=== PATIENT | male | born 1960 | race Caucasian/White ===

== ENCOUNTER 2017-04-01 17:43 | Emergency (ER) | payer OTHER ==
[2017-04-01 17:55] VITALS: BP 142/94
[2017-04-01] MEDS ORDERED: cephALEXin 250 MG CAPSULE PO STA (19:43)
[2017-04-01] MEDS ORDERED: SULFAMETH/TRIMETH DS 800/160 MG TABLET PO STA (19:43)
--- NOTE | 2017-04-01 19:46 | ED Physician Documentation ---
History of Present Illness - Stated complaint Stated Complaint: RT LEG BLISTER - Chief complaint Chief Complaint: Wound - History obtained from History obtained from: Patient, Family - History of Present Illness Timing: How many days ago (2) Pain level max: 4 Pain level now: 4 Improved by: nothing Worsened by: nothing - Additonal information Additional information: Patient is a 56-year-old gentleman who noted a blistering to the right leg a few days ago, tried to pop it last night and now has spreading redness around the wound. No fever. Denies any injury. Review of Systems Constitutional: denies: Fever GI: denies: Vomiting PD PAST MEDICAL HISTORY - Past Medical History Past Medical History: No Cardiovascular: None Respiratory: None Neuro: None Endocrine/Autoimmune: None GI: None : None HEENT: None Psych: None Musculoskeletal: None Derm: None - Past Surgical History Past Surgical History: No - Present Medications Home Medications: Ambulatory Orders Medication Instructions Recorded Confirmed Cephalexin [Keflex] 500 mg PO Q6H #28 capsule 04/01/17 Ketoconazole 15 gm TP BID 04/01/17 04/01/17 Sulfamethox/Trimeth 800/160 1 each PO BID #14 tablet 04/01/17 [Bactrim Ds 800/160] - Allergies Allergies/Adverse Reactions: Allergies Allergy/AdvReac Type Severity Reaction Status Date / Time No Known Drug Allergies Allergy Verified 04/01/17 17:55 - Social History Does the pt smoke?: No Smoking Status: Never smoker Does the pt drink ETOH?: Yes Does the pt have substance abuse?: No - Immunizations Immunizations are current?: No - POLST Patient has POLST: No PD ED PE NORMAL - Vitals Vital signs reviewed: Yes - General General: Alert and oriented X 3, No acute distress - Derm Derm: Warm and dry - Extremities Extremities: Other (R thigh - 3x3cm erythema to the distal lateral thigh, small central area of open wound, no purulence. ) - Neuro Neuro: Alert and oriented X 3 - Psych Psych: Normal mood, Normal affect Results - Vitals Vitals: Vital Signs - 24 hr 04/01/17 04/01/17 17:47 19:57 Temperature 36.5 C Heart Rate 89 82 Respiratory 16 17 Rate Blood Pressure 142/94 H O2 Saturation 99 99 Oxygen O2 Source Room air PD MEDICAL DECISION MAKING - ED course Complexity details: considered differential, d/w patient, d/w family ED course: Patient is a 56-year-old male who presents to the emergency department with what appears to be a spontaneously drained abscess with surrounding cellulitis to the right distal thigh. Will place on antibiotics for this. We will have him follow-up with his PCP for further evaluation and care. Patient and family counseled regarding signs and symptoms for which I believe and urgent re- evaluation would be necessary. Patient with good understanding of and agreement to plan and is comfortable going home at this time This document was made in part using voice recognition software. While efforts are made to proofread this document, sound alike and grammatical errors may occur. Departure - Departure Disposition: Home, Self Care Clinical Impression: Cellulitis Qualifiers: Site of cellulitis: extremity Site of cellulitis of extremity: lower extremity Laterality: right Qualified Code(s): L03.115 - Cellulitis of right lower limb Condition: Good Instructions: ED Infec Skin Cellulitis Follow-Up: Iva Jane PA [Primary Care Provider] - Within 1 week Prescriptions: Cephalexin [Keflex] 500 mg PO Q6H #28 capsule Sulfamethox/Trimeth 800/160 [Bactrim Ds 800/160] 1 each PO BID #14 tablet Comments: Return if you worsen. Take all antibiotics until gone. You can use motrin or tylenol as needed for pain. Discharge Date/Time: 04/01/17 19:58
[2017-04-01] MEDS ORDERED: cephALEXin 250 MG CAPSULE PO ONE (19:57)
[2017-04-01] MEDS ORDERED: SULFAMETH/TRIMETH DS 800/160 MG TABLET PO ONE (19:57)
== END 2017-04-01 19:58 | disposition home or self-care (01) ==
LOC: ED 17:43
DX: L03.115 Cellulitis of right lower limb (principal)
CPT/HCPCS: 99283; A9270